=== PATIENT | male | born 1970 | race Caucasian/White ===

== ENCOUNTER 2020-06-25 12:38 | Emergency (ER) | payer MEDICAID ==
[~2020-06-25] VITALS: Ht 165.1 cm; Wt 99.8 kg
[2020-06-25 12:40] VITALS: Ht 165.1 cm; Wt 99.8 kg
[2020-06-25] MEDS ORDERED: PROINH INH (14:04)
[2020-06-25 15:09] VITALS: BP 142/63
== END 2020-06-25 15:09 | disposition home or self-care (01) ==
LOC: ED 12:38
DX: U07.1 COVID-19 (principal); J12.82 Pneumonia due to coronavirus disease 2019